=== PATIENT | male | born 1995 | race Two or more races ===

== ENCOUNTER 2022-09-22 13:32 | Emergency (ER) | payer MEDICAID ==
[~2022-09-22] VITALS: Ht 180.3 cm; Wt 99.8 kg
[2022-09-22 14:07] VITALS: BP 149/87
--- NOTE | 2022-09-22 15:45 | NUR ---
Patient discharged to home By ER Provider Dr Maguire in stable condition. Written and verbal after care instructions given by same. Patient verbalizes understanding of instruction.
== END 2022-09-22 16:12 | disposition home or self-care (01) ==
LOC: ER 13:42
DX: F41.9 Anxiety disorder, unspecified (principal)